=== PATIENT | male | born 1960 | race Caucasian/White ===

== ENCOUNTER 2020-07-08 22:12 | Emergency (ER) | payer MEDICAID ==
[~2020-07-08] VITALS: Ht 170.2 cm; Wt 79.4 kg
[2020-07-08 22:22] VITALS: BP 116/76
--- NOTE | 2020-07-08 22:28 | Emergency Room Report ---
History of Present Illness General Chief Complaint: Multiple Trauma/Fall Source: Patient, Medical Record, EMS Present Illness HPI This is a 59-year-old male with a history of CVA and previous exploratory laparotomy. He presents with chief complaint of neck pain and constipation. He said he got out of bed tonight and fell. He said he hit his head and neck. He has previous spinal surgery in his neck. He complaining of numbness to his body when he moves. No loss of consciousness. Said that he did hit his head. Also with neck pain. Pain is 7 out of 10. No fever chills. Has nausea and vomiting. Also with no bowel movement for 10 days. Denies any trauma. Denies any fever chills. Allergies: Coded Allergies: IBUPROFEN (Verified Allergy, Unknown, 07/08/20) COVID-19 Screening Contact w/high risk pt: No Experienced COVID-19 symptoms?: No COVID-19 Testing performed CARTOONIST SPECIAL EFFECTS: No Patient History Past Medical History: see triage record, old chart reviewed, CVA/TIA Past Surgical History: other Pertinent Family History: none Social History: Denies: smoking Immunizations: other Reviewed Nursing Documentation: PMH: Agreed; PSxH: Agreed Review of Systems Eye: Denies: eye pain, blurred vision ENT: Denies: ear pain, nose congestion, throat swelling Respiratory: Denies: cough, shortness of breath Cardiovascular: Denies: chest pain, palpitations Gastrointestinal: Reports: abdominal pain, nausea, vomiting; Denies: diarrhea Musculoskeletal: Denies: back pain, joint pain Skin: Denies: rash Neurological: Denies: headache, numbness Endocrine: Denies: increased thirst, increased urine Hematologic/Lymphatic: Denies: easy bruising All Other Systems: negative except mentioned in HPI Physical Exam Vital Signs Date Time Temp Pulse Resp B/P (MAP) Pulse Ox O2 Delivery O2 Flow Rate FiO2 07/08/20 22:13 98.2 98 18 116/76 (89) 99 Room Air Vitals normal Sp02 EP Interpretation: reviewed, normal General Appearance: well appearing, no apparent distress, alert Head: normocephalic, other - Small abrasion to forehead Eyes: bilateral eye PERRL, bilateral eye EOMI ENT: hearing grossly normal, normal pharynx Neck: full range of motion, supple, no meningismus Respiratory: chest non-tender, lungs clear, normal breath sounds Cardiovascular #1: regular rate, rhythm, no murmur Gastrointestinal: normal bowel sounds, non tender, no mass, no organomegaly, no bruit, non-distended Musculoskeletal: back normal, normal range of motion, gait/station normal Psychiatric: mood/affect normal Medical Decision Making Diagnostic Impression: Primary Impression: Head injury, acute Qualified Codes: S09.90XA - Unspecified injury of head, initial encounter Additional Impressions: Cervical strain, acute Qualified Codes: S16.1XXA - Strain of muscle, fascia and tendon at neck level, initial encounter Constipation Qualified Codes: K59.00 - Constipation, unspecified ER Course Patient presents with a fall with head injury and neck pain. No evidence of any fracture dislocation. He complained of constipation for a week but CT scans were unremarkable. No evidence of severe constipation or obstruction. Will discharge home with lactulose. Patient had a enema earlier today at the [facility]. He does not want one here. CT/MRI/US Diagnostic Results CT/MRI/US Diagnostic Results #1: Imaging Test Ordered: CT head Impression Read by radiologist. Negative. CT/MRI/US Diagnostic Results #2: Imaging Test Ordered: CT C-spine Impression Read by radiologist. Negative. CT/MRI/US Diagnostic Results #3: Imaging Test Ordered: CT abdomen pelvis Impression Read by radiologist. No acute process. Last Vital Signs Date Time Temp Pulse Resp B/P (MAP) Pulse Ox O2 Delivery O2 Flow Rate FiO2 07/08/20 22:13 98.2 98 18 116/76 (89) 99 Room Air Status: improved Disposition: SNF Condition: Stable Scripts Lactulose (LACTULOSE*) 20 Gm/30 Ml Solution 30 ML ORAL BID, #240 ML 0 Refills Prov: Jonathan Huggins MD 07/08/20 Additional Instructions: Follow-up with your doctor in 7 days but return if symptoms worsen. Jonathan Huggins MD Jul 08, 2020 22:28
--- NOTE | 2020-07-08 22:28 | NUR ---
ED Nurse Note: patient brought in by ems from nursing facility, he fell out of his wheelchair on his right side and hit the hard floor, history of cva, and musculoskeletal injuries patient is stable, and resting
[2020-07-08] MEDS ORDERED: Fleet's Enema 133ml RECTAL ONE (22:30)
[2020-07-08] MEDS ORDERED: NEURONTIN300 MG ORAL (22:35)
[2020-07-08] MEDS ORDERED: METHADONE10 MG/1 M1 ORAL (22:35)
[2020-07-08] MEDS ORDERED: TYLENOL650 MG PR (22:35)
[2020-07-08] MEDS ORDERED: PRO-STAT LIQUID30 ML ORAL (22:35)
[2020-07-08] MEDS ORDERED: DOCUSATE SODIU250 MG ORAL (22:35)
--- NOTE | 2020-07-08 22:40 | NUR ---
ED Nurse Note: patient taken to ct, blood sent to lab
[2020-07-08 22:54] LABS: EOSINOPHILS % (AUTO) 5.9 % (0.0-3.0); HEMATOCRIT 42.3 % (42.0-52.0); HEMOGLOBIN 13.6 G/DL (14.2-18.0); MEAN CORPUSCULAR VOLUME 90 FL (80-99); NEUTROPHILS % (AUTO) 42.2 % (45.0-75.0); PLATELET COUNT 178 K/UL (150-450); RED BLOOD COUNT 4.69 M/UL (4.70-6.10); WHITE BLOOD COUNT 5.2 K/UL (4.8-10.8)
--- NOTE | 2020-07-08 22:58 | NUR ---
ED Nurse Note: pt returned from CT
[2020-07-08 23:03] LABS: ANION GAP 10 mmol/L (5-15); BLOOD UREA NITROGEN 14 mg/dL (7-18); CALCIUM 8.5 MG/DL (8.5-10.1); CARBON DIOXIDE 28 MMOL/L (21-32); CHLORIDE 103 MMOL/L (98-107); CREATININE 0.9 MG/DL (0.55-1.30); POTASSIUM 4.3 MMOL/L (3.5-5.1); SODIUM 141 MMOL/L (136-145)
--- NOTE | 2020-07-08 23:03 | Diagnostic Imaging Report ---
EXAM: CT Head Without Intravenous Contrast CLINICAL HISTORY: TRAUMA TECHNIQUE: Axial computed tomography images of the head/brain without intravenous contrast. CTDI is 53.4 mGy and DLP is 1152.4 mGy-cm. One or more of the following dose reduction techniques were used: automated exposure control, adjustment of the mA and/or kV according to patient size, use of iterative reconstruction technique. COMPARISON: No relevant prior studies available. FINDINGS: Brain: No hemorrhage. No edema. Ventricles: No ventriculomegaly. Bones/joints: No acute fracture. Old nasal fractures. Cervical fusion Soft tissues: Unremarkable. Sinuses: No acute sinusitis. Mastoid air cells: No mastoid effusion. IMPRESSION: No acute intracranial process.
[2020-07-08 23:08] LABS: ALANINE AMINOTRANSFERASE 92 U/L (12-78); ALBUMIN 3.9 G/DL (3.4-5.0); ALKALINE PHOSPHATASE 58 U/L (46-116); ASPARTATE AMINO TRANSFERASE 81 U/L (15-37); BILIRUBIN,TOTAL 0.3 MG/DL (0.2-1.0)
--- NOTE | 2020-07-08 23:13 | NUR ---
ED Nurse Note: urine sent to lab
--- NOTE | 2020-07-08 23:14 | Diagnostic Imaging Report ---
EXAM: CT Cervical Spine Without Intravenous Contrast CLINICAL HISTORY: TRAUMA TECHNIQUE: Axial computed tomography images of the cervical spine without intravenous contrast. CTDI is 20.20 mGy and DLP is 538.5 mGy-cm. One or more of the following dose reduction techniques were used: automated exposure control, adjustment of the mA and/or kV according to patient size, use of iterative reconstruction technique. COMPARISON: No relevant prior studies available. FINDINGS: Vertebrae: No acute fracture or malalignment. Posterior cervical fusion with intact hardware. Degenerative changes Discs/spinal canal/neural foramina: Degenerative changes. Soft tissues: Unremarkable. Dental: Dental related disease with periapical lucency/abscess. Lung apices: Small nodular focus partially visualized in the left lung apex. IMPRESSION: No acute fracture or malalignment.
[2020-07-08 23:19] LABS: APPEARANCE,URINE CLEAR; BILIRUBIN, URINE NEGATIVE (NEGATIVE); COLOR,URINE PALE YELLOW; GLUCOSE, URINE (UA) NEGATIVE (NEGATIVE); KETONES,URINE NEGATIVE (NEGATIVE); LEUKOCYTE ESTERASE ,URINE NEGATIVE (NEGATIVE); NITRITE,URINE NEGATIVE (NEGATIVE); PH,URINE 5 (4.5-8.0); PROTEIN,URINE NEGATIVE (NEGATIVE); UROBILINOGEN,URINE NORMAL MG/DL (0.0-1.0)
--- NOTE | 2020-07-08 23:28 | Diagnostic Imaging Report ---
EXAM: CT Abdomen and Pelvis Without Intravenous Contrast CLINICAL HISTORY: TRAUMA TECHNIQUE: Axial computed tomography images of the abdomen and pelvis without intravenous contrast. CTDI is 5.6 mGy and DLP is 300 mGy-cm. One or more of the following dose reduction techniques were used: automated exposure control, adjustment of the mA and/or kV according to patient size, use of iterative reconstruction technique. COMPARISON: No relevant prior studies available. FINDINGS: Lung bases: Scarring in the lung bases. Pleural space: Right pleural thickening with calcifications. Heart: Cardiomegaly. Mediastinum: Some fluid in the mildly distended distal esophagus. ABDOMEN: Liver: Nodular, probably cirrhotic liver. Gallbladder and bile ducts: No calcified stones. No ductal dilation. Pancreas: Unremarkable. Spleen: Unremarkable. Adrenals: Unremarkable. Kidneys and ureters: No renal calculi or obstructive changes. Stomach and bowel: No billy mural thickening. Nonobstructive bowel gas pattern. PELVIS: Appendix: No findings to suggest acute appendicitis. Bladder: Unremarkable. Reproductive: Heterogeneous prostate. ABDOMEN and PELVIS: Intraperitoneal space: Unremarkable. Bones/joints: No acute fracture. Soft tissues: Suspect small fat-containing ventral hernias. Vasculature: Unremarkable. No abdominal aortic aneurysm. Lymph nodes: Mesenteric and retroperitoneal adenopathy. IMPRESSION: No acute traumatic findings.
[2020-07-08] MEDS ORDERED: LACTULOSE20 GM/301 ORAL (23:44)
[2020-07-08] MEDS ORDERED: Acetaminophen 500mg (ES) tab ORAL ONE (23:45)
[2020-07-08 23:59] VITALS: BP 123/72
--- NOTE | 2020-07-09 04:26 | NUR ---
ER DISCHARGE NOTE: Patient is cleared to be discharged per ERMD, pt is aox4, on room air, with stable vital signs. pt was given dc and prescription instructions, pt was able to verbalize understanding, pt id band and iv site removed without complications. pt took all belongings.
== END 2020-07-09 04:19 ==
LOC: EDBD 22:12 → EMR 22:40
DX: S09.90XA Unspecified injury of head, initial encounter (principal); S16.1XXA Strain of muscle, fascia and tendon at neck level, initial encounter; K59.00 Constipation, unspecified; Z86.73 Personal history of transient ischemic attack (TIA), and cerebral infarction without residual deficits; Z88.6 Allergy status to analgesic agent; W01.10XA Fall on same level from slipping, tripping and stumbling with subsequent striking against unspecified object, initial encounter; Y93.89 Activity, other specified; Y92.013 Bedroom of single-family (private) house as the place of occurrence of the external cause
CPT/HCPCS: 36415; 70450; 72125; 74176; 80053; 81003; 85025; Z7502; 99284